=== PATIENT | female | born 1980 | race Hispanic/Latino ===

== ENCOUNTER → 2017-07-22 | Outpatient (CLI) | payer MEDICAID ==
[~2017-07-22] MED LIST: BUPR150T3 PO; SERT100T PO; TRAM50TA4 PO
== END ==
LOC: RAH 08:39
PROVIDERS: ATTEND Internal Medicine Gastroenterology
DX: R10.31 Right lower quadrant pain (principal); R11.0 Nausea
CPT/HCPCS: 76700

== ENCOUNTER 2017-09-06 03:33 | Emergency (ER) | payer MEDICAID, OTHER ==
[2017-09-06] MEDS ORDERED: IBUPROFEN 600 MG TABLET ONE (04:00)
[2017-09-06] MEDS ORDERED: ACETAMINOPHEN 325 MG TAB ONE (04:04)
== END 2017-09-06 05:09 | disposition home or self-care (01) ==
LOC: EDH 03:33
DX: S80.01XA Contusion of right knee, initial encounter (principal); S70.12XA Contusion of left thigh, initial encounter; S40.022A Contusion of left upper arm, initial encounter; G43.909 Migraine, unspecified, not intractable, without status migrainosus; Z88.6 Allergy status to analgesic agent; Z88.1 Allergy status to other antibiotic agents; Z79.899 Other long term (current) drug therapy; Z72.0 Tobacco use; Y08.89XA Assault by other specified means, initial encounter; Y93.89 Activity, other specified; Y92.89 Other specified places as the place of occurrence of the external cause; Y99.8 Other external cause status
CPT/HCPCS: 73562

== ENCOUNTER 2020-05-29 10:17 | Emergency (ER) | payer MEDICAID ==
[2020-05-29] MEDS ORDERED: PENICILLIN V POTASSIUM 500 MG TABLET ONE (11:03)
== END 2020-05-29 11:38 | disposition left against medical advice (07) ==
LOC: EDH 10:17
DX: K08.89 Other specified disorders of teeth and supporting structures (principal); F41.9 Anxiety disorder, unspecified; F32.9 Major depressive disorder, single episode, unspecified; G43.909 Migraine, unspecified, not intractable, without status migrainosus; Z88.6 Allergy status to analgesic agent
CPT/HCPCS: 81025

== ENCOUNTER 2020-07-09 05:30 | Day surgery (SDC) | payer MEDICAID ==
[2020-07-03 09:07] LABS: BASOPHILS % (AUTO) 0.8 % (0.0-5.0); EOSINOPHILS % (AUTO) 3.3 % (0.0-8.0); HEMATOCRIT 42.5 % (36-48); LYMPHOCYTES % (AUTO) 24.2 % (21.0-51.0); MEAN CORPUSCULAR HEMOGLOBIN 29.1 pg (27.0-33.0); MEAN CORPUSCULAR HGB CONC 32.5 g/dL (32.0-36.0); MEAN CORPUSCULAR VOLUME 89.5 fL (79-99); MONOCYTES % (AUTO) 6.5 % (3.0-13.0); NEUTROPHILS % (AUTO) 64.9 % (40.0-77.0); PLATELET COUNT (AUTO) 269 K/uL (130-400); RED BLOOD CELL COUNT(AUTO) 4.75 MIL/uL (4.00-5.50); RED CELL DISTRIBUTION WIDTH 13.2 % (11.0-15.5); WHITE BLOOD COUNT (AUTO) 7.9 K/uL (4.8-10.8)
[2020-07-08 13:59] VITALS: BP 125/84
[2020-07-09] VITALS (16 sets, daily range): BP systolic 106–157; BP diastolic 56–99
[~2020-07-09] VITALS: Ht 154.9 cm; Wt 103.8 kg
[~2020-07-09 05:30] MED LIST changes: +ALPR2TAB2 PO; +LISI10TA24 PO; -TRAM50TA4 PO
[2020-07-09] MEDS: LACTATED RINGERS 1000ML 1,000 ML IV SCH ×2 (07:06→07:30)
[2020-07-09] MEDS ORDERED: PHARMACY COMMUNICATION MISC SCH (07:15)
[2020-07-09] MEDS ORDERED: MIDAZOLAM HCL 1 MG/ML 2ML VIAL ONE (07:54)
[2020-07-09] MEDS ORDERED: PROPOFOL 10 MG/ML 20ML VIAL IV ONE ×2 (07:54→09:31)
[2020-07-09] MEDS ORDERED: LIDOCAINE PF 100MG/5ML (2%) SYRINGE 5ML ONE (07:54)
[2020-07-09] MEDS ORDERED: DEXAMETHASONE SOD PHOSPHATE 10MG/ML 1ML VIAL ONE (07:54)
[2020-07-09] MEDS ORDERED: ONDANSETRON 4MG INJ ONE (07:54)
[2020-07-09] MEDS ORDERED: SUCCINYLCHOLINE CHLORIDE 20 MG/ML 10 ML VIAL ONE (07:54)
[2020-07-09] MEDS ORDERED: ROCURONIUM 10MG/1ML SYR 10 MG/ML ML ONE ×2 (07:55→09:02)
[2020-07-09] MEDS ORDERED: FENTANYL CITRATE PF 50 MCG/1 ML 2ML VIAL ONE ×3 (07:55→09:28)
[2020-07-09] MEDS ORDERED: PHENYLEPHRINE HCL 10 MG/ML 1ML VIAL IV ONE (08:24)
[2020-07-09] MEDS ORDERED: GLYCOPYRROLATE 1 MG/5 ML SYRINGE ONE (09:32)
[2020-07-09] MEDS ORDERED: NEOSTIGMINE 5MG/5ML SYR IV ONE (09:32)
[2020-07-09] MEDS ORDERED: MEPERIDINE-PF 25 MG/ML SYG ONE ×2 (10:08→10:29)
== END 2020-07-09 11:15 | disposition home or self-care (01) ==
LOC: DAH 05:30
PROVIDERS: ATTEND Obstetrics & Gynecology
DX: R10.2 Pelvic and perineal pain (principal); N83.201 Unspecified ovarian cyst, right side; N73.6 Female pelvic peritoneal adhesions (postinfective); E66.01 Morbid (severe) obesity due to excess calories; I10 Essential (primary) hypertension; K21.9 Gastro-esophageal reflux disease without esophagitis; E66.9 Obesity, unspecified; G89.29 Other chronic pain; Z79.899 Other long term (current) drug therapy; Z20.828 Contact with and (suspected) exposure to other viral communicable diseases
CPT/HCPCS: 36415 ×2; 49320; 84703; 85025; 86850 ×2; 86900 ×2; 86901 ×2; A4215 ×2; A4221; A4222; A4223; A4344; A4606; A4649 ×2; A6260; C1769 ×2; C9803; J0330; J1100; J2001; J2175 ×2; J2250; J2370; J2405; J2704 ×2; J2710; J3010 ×3; J3490; J7120 ×2; U0003